=== PATIENT | female | born 1930 | race Caucasian/White ===

== ENCOUNTER 2016-02-16 17:15 | Inpatient (IN) | payer OTHER ==
[~2016-02-16] VITALS: Ht 165.1 cm; Wt 56.5 kg
[~2016-02-16 17:15] MED LIST: ASCORBIC ACID250 MG PO; Actonel PO; Ambien PO; BENICAR HCT 401 EAC1 PO; CALAN SR,COVER120 MG PO; COMPAZINE10 MG PO; COUMADIN2 MG PO; COUMADIN3 M1 PO; CRESTOR40 MG PO; Calan PO; IRON325 MG PO; K-DUR20 MEQ PO; LIPITOR40 MG PO; LIPITOR80 MG PO; LOPRESSOR25 MG PO; LOPRESSOR50 MG PO; Lopressor PO; METOPROLOL TART25 MG PO; PLAVIX75 MG PO; PROTONIX40 MG PO; WARFARIN SODIUM4 MG PO; XANAX0.25 MG PO; ZESTRIL,PRINIVI40 MG PO
[2016-02-16 17:55] LABS: HEMATOCRIT 26.2 % (36.0-46.0); MCH 32.2 PG (29.0-34.0); MCHC 32.1 G/DL (30.0-36.0); MCV 100.4 FL (83-99); MEAN PLAT.VOLUME 12.3 uM^3 (9.5-12.4); PLATELET COUNT 159 K/uL (156-360); RBC DIS.WIDTH-CV 23.1 % (11.8-14.6); RBC DIS.WIDTH-SD 78.5 % (39-53); RED BLOOD COUNT 2.61 M/uL (3.80-5.20); WHITE BLOOD COUNT 4.7 K/uL (4.1-10.2)
[2016-02-16 18:06] LABS: CHLORIDE 111 mEq/L (99-109); POTASSIUM 4.6 mEq/L (3.7-5.4); SODIUM 139 mEq/L (136-147)
[2016-02-16 18:08] LABS: GLUCOSE 95 mg/dL (70-99)
[2016-02-16 18:10] LABS: ANION GAP 9 MEQ/L (2-14); INTER. NORMALIZED RATIO 6.3; PROTHROMBIN TIME 67.7 (9.2-11.2)
[2016-02-16 18:12] LABS: GFR ESTIMATE (CALCULATED) 13 mL/min/
[2016-02-16 18:13] LABS: UREA NITROGEN (BUN) 42 mg/dL (9-23)
[2016-02-16] MEDS ORDERED: LIPITOR40 MG PO (18:37)
[2016-02-16] MEDS ORDERED: COUMADIN3 MG PO (18:38)
[2016-02-16] MEDS ORDERED: MIRTAZAPINE7.5 MG PO (18:38)
[2016-02-16] MEDS ORDERED: VERAPAMIL HCL120 MG PO (18:39)
[2016-02-16] MEDS ORDERED: TYLENOL REGULA325 MG PO (18:40)
[2016-02-16 21:31] LABS: TOTAL BILIRUBIN 1.9 mg/dL (0.0-1.0)
[2016-02-16 21:32] LABS: ALKALINE PHOSPHATASE 79 IU/L (3-129)
[2016-02-16 21:34] LABS: DIRECT BILIRUBIN 0.6 mg/dL (0.0-0.3)
[2016-02-16 21:55] VITALS: BP 140/60
[2016-02-16 22:10] VITALS: BP 142/65
[2016-02-16 22:47] VITALS: BP 162/70
[2016-02-17] VITALS (14 sets, daily range): BP systolic 121–192; BP diastolic 62–76
[2016-02-17 06:56] LABS: CHLORIDE 112 MEQ/L (99-109); GFR ESTIMATE (CALCULATED) 14 mL/min/; GLUCOSE 89 mg/dL (70-99); POTASSIUM 4.3 MEQ/L (3.7-5.4); SODIUM 141 MEQ/L (136-147); UREA NITROGEN (BUN) 41 mg/dL (9-23)
[2016-02-17 06:57] LABS: ALKALINE PHOSPHATASE 62 IU/L (3-129); ANION GAP 8 MEQ/L (2-14); MAGNESIUM 1.8 mg/dl (1.3-2.7); SAMPLE HEMOLYSIS CHECK 1; SAMPLE ICTERIC CHECK 0; SAMPLE LIPEMIA CHECK 0; TOTAL BILIRUBIN 2.7 MG/DL (0.0-1.0)
[2016-02-17 06:59] LABS: HEMATOCRIT 32.5 % (36.0-46.0)
[2016-02-17 07:49] LABS: ADD MIUA? YES; BILIRUBIN NEGATIVE; BLOOD LARGE; COLOR YELLOW ((YELLOW)); GLUCOSE (STRIP) NEGATIVE; KETONES NEGATIVE; LEUKOCYTES SMALL; NITRITE NEGATIVE; PH, URINE 5.5 (5-8); PROTEIN (STRIP) 30; SPECIFIC GRAVITY 1.007 (1.000-1.030); UROBILINOGEN 0.2 MG/DL (0.2-1.0)
[2016-02-17 07:52] LABS: BACTERIA NONE SEEN; CASTS NONE SEEN /LPF; CRYSTALS NONE SEEN; EPITHELIAL CELLS RARE; MUCUS NONE SEEN; PATHOLOGICAL CAST NONE SEEN; RED BLOOD CELLS 30-40 /HPF (0-5); SMALL ROUND CELL NONE SEEN; UCUL ADDED? NO; YEAST-LIKE CELL NONE SEEN
[2016-02-17 09:15] LABS: INTER. NORMALIZED RATIO 5.2; PROTHROMBIN TIME 55.9 (9.2-11.2)
[2016-02-17 18:05] LABS: HEMATOCRIT 30.5 % (36.0-46.0); MCV 93.8 FL (83-99)
[2016-02-17 18:46] LABS: UR CREATININE CONCENTRATION 32.9 MG/DL
[2016-02-18 04:30] VITALS: BP 132/67
[2016-02-18 06:13] LABS: ANION GAP 10 MEQ/L (2-14); CHLORIDE 110 MEQ/L (99-109); GFR ESTIMATE (CALCULATED) 15 mL/min/; GLUCOSE 87 mg/dL (70-99); SAMPLE HEMOLYSIS CHECK 1; SAMPLE ICTERIC CHECK 0; SAMPLE LIPEMIA CHECK 0; SODIUM 141 MEQ/L (136-147); UREA NITROGEN (BUN) 42 mg/dL (9-23); URIC ACID 5.4 mg/dL (3.1-9.2)
[2016-02-18 06:16] LABS: INTER. NORMALIZED RATIO 4.1
[2016-02-18 06:52] LABS: PROTHROMBIN TIME 43.9 (9.2-11.2)
[2016-02-18 07:11] LABS: EOSINOPHIL (%) 2.4 % (0-5); EOSINOPHIL COUNT 0.1 K/uL (0-0.3); HEMATOCRIT 30.9 % (36.0-46.0); IMMATURE GRANULOCYTE (%) 0.4 % (0.0-0.7); LYMPHOCYTE COUNT 0.5 K/uL (1.0-2.8); MCH 31.2 PG (29.0-34.0); MCV 94.5 FL (83-99); MONOCYTE (%) 12.6 % (3-12); MONOCYTE COUNT 0.7 K/uL (0-0.8); NEUTROPHIL (%) 74.7 % (45-76); NEUTROPHIL COUNT 4.1 K/uL (1.8-6.4); RBC DIS.WIDTH-CV 22.6 % (11.8-14.6); RBC DIS.WIDTH-SD 75.2 % (39-53); WHITE BLOOD COUNT 5.5 K/uL (4.1-10.2)
[2016-02-18 07:15] LABS: RED BLOOD COUNT 3.27 M/uL (3.80-5.20)
[2016-02-18 08:36] VITALS: BP 167/74
[2016-02-18 09:28] LABS: MEAN PLAT.VOLUME 13.4 uM^3 (9.5-12.4); PLAT.SUFFICIENCY ADEQUATE; PLATELET COUNT 166 K/uL (156-360); USER ID STC
[2016-02-18 12:35] VITALS: BP 156/74
[2016-02-18 16:32] VITALS: BP 190/95
[2016-02-18 20:00] VITALS: BP 150/86
[2016-02-19] VITALS: BP 168/87
[2016-02-19 04:00] VITALS: BP 141/61
[2016-02-19 06:46] LABS: ANION GAP 12 MEQ/L (2-14); CHLORIDE 110 MEQ/L (99-109); GFR ESTIMATE (CALCULATED) 15 mL/min/; GLUCOSE 105 mg/dL (70-99); MAGNESIUM 1.7 mg/dl (1.3-2.7); POTASSIUM 3.7 MEQ/L (3.7-5.4); SAMPLE HEMOLYSIS CHECK 1; SAMPLE ICTERIC CHECK 0; SAMPLE LIPEMIA CHECK 0; SODIUM 142 MEQ/L (136-147); UREA NITROGEN (BUN) 44 mg/dL (9-23)
[2016-02-19 06:52] LABS: PROTHROMBIN TIME 31.4 (9.2-11.2)
[2016-02-19 07:08] LABS: MCH 31.5 PG (29.0-34.0); MCHC 33.3 G/DL (30.0-36.0); MCV 94.4 FL (83-99); RBC DIS.WIDTH-CV 21.5 % (11.8-14.6); RBC DIS.WIDTH-SD 71.3 % (39-53); RED BLOOD COUNT 2.86 M/uL (3.80-5.20); WHITE BLOOD COUNT 5.2 K/uL (4.1-10.2)
[2016-02-19 08:12] VITALS: BP 162/7
[2016-02-19 08:21] LABS: MEAN PLAT.VOLUME 13.8 uM^3 (9.5-12.4); PLATELET COUNT 147 K/uL (156-360)
[2016-02-19 13:07] VITALS: BP 154/71
[2016-02-19 20:16] VITALS: BP 118/64
[2016-02-20] VITALS (9 sets, daily range): BP systolic 94–155; BP diastolic 51–70
[2016-02-20 06:41] LABS: INTER. NORMALIZED RATIO 2.8; PROTHROMBIN TIME 29.5 (9.2-11.2)
[2016-02-20 06:47] LABS: EOSINOPHIL (%) 0.4 % (0-5); HEMATOCRIT 31.6 % (36.0-46.0); IMMATURE GRANULOCYTE (%) 0.2 % (0.0-0.7); LYMPHOCYTE COUNT 0.8 K/uL (1.0-2.8); MCH 31.7 PG (29.0-34.0); MCHC 32.6 G/DL (30.0-36.0); MCV 97.2 FL (83-99); MONOCYTE (%) 8.2 % (3-12); MONOCYTE COUNT 0.8 K/uL (0-0.8); NEUTROPHIL (%) 82.9 % (45-76); NEUTROPHIL COUNT 8.1 K/uL (1.8-6.4); RBC DIS.WIDTH-SD 75.1 % (39-53); RED BLOOD COUNT 3.25 M/uL (3.80-5.20)
[2016-02-20 06:48] LABS: ANION GAP 10 MEQ/L (2-14); CHLORIDE 107 MEQ/L (99-109); GFR ESTIMATE (CALCULATED) 15 mL/min/; GLUCOSE 121 mg/dL (70-99); POTASSIUM 3.9 MEQ/L (3.7-5.4); SAMPLE HEMOLYSIS CHECK 0; SAMPLE ICTERIC CHECK 0; SAMPLE LIPEMIA CHECK 0; SODIUM 137 MEQ/L (136-147); UREA NITROGEN (BUN) 44 mg/dL (9-23)
[2016-02-20 06:59] LABS: MEAN PLAT.VOLUME 13.7 uM^3 (9.5-12.4); PLAT.SUFFICIENCY ADEQUATE; PLATELET COUNT 205 K/uL (156-360); USER ID TLW; WHITE BLOOD COUNT 9.8 K/uL (4.1-10.2)
[2016-02-20 08:12] LABS: ANTI-NUCLEAR AB SCRN/RFLX(ANA) REACTIVE (NONREACTIVE)
[2016-02-20 08:13] LABS: CENTROMERE ANTIBODY 7 U/mL (0-99); HISTONE ANTIBODY 27 U/mL (0-99); JO-1 ANTIBODY 13 U/mL (0-99); SCL-70 (SCLERODERMA) ANTIBODY 9 U/mL (0-99); SM (SMITH) ANTIBODY 9 U/mL (0-99); SS-A (SJOGREN'S) ANTIBODY 9 U/mL (0-99); SS-B (SJOGREN'S) ANTIBODY 9 U/mL (0-99)
[2016-02-20 15:38] LABS: C3 COMPLEMENT 125 MG/DL (58-170); C4 COMPLEMENT 26 MG/DL (10-40)
[2016-02-20 16:33] LABS: HBSG INDEX 0.23; HPCA INDEX 0.15
[2016-02-21 03:43] VITALS: BP 102/49
[2016-02-21 06:44] LABS: PROTHROMBIN TIME 31.7 (9.2-11.2)
[2016-02-21 06:55] LABS: ANION GAP 10 MEQ/L (2-14); CHLORIDE 108 MEQ/L (99-109); GFR ESTIMATE (CALCULATED) 16 mL/min/; POTASSIUM 3.5 MEQ/L (3.7-5.4); SAMPLE HEMOLYSIS CHECK 0; SAMPLE ICTERIC CHECK 0; SAMPLE LIPEMIA CHECK 0; SODIUM 138 MEQ/L (136-147); UREA NITROGEN (BUN) 46 mg/dL (9-23)
[2016-02-21 06:57] LABS: GLUCOSE 85 mg/dL (70-99)
[2016-02-21 07:19] LABS: EOSINOPHIL (%) 2.8 % (0-5); EOSINOPHIL COUNT 0.2 K/uL (0-0.3); HEMATOCRIT 24.5 % (36.0-46.0); IMMATURE GRANULOCYTE (%) 0.1 % (0.0-0.7); LYMPHOCYTE COUNT 0.4 K/uL (1.0-2.8); MCH 31.8 PG (29.0-34.0); MCHC 33.1 G/DL (30.0-36.0); MCV 96.1 FL (83-99); MONOCYTE (%) 11.2 % (3-12); MONOCYTE COUNT 0.8 K/uL (0-0.8); NEUTROPHIL (%) 79.7 % (45-76); NEUTROPHIL COUNT 5.4 K/uL (1.8-6.4); RBC DIS.WIDTH-CV 21.5 % (11.8-14.6); RBC DIS.WIDTH-SD 72.9 % (39-53)
[2016-02-21 07:21] LABS: RED BLOOD COUNT 2.55 M/uL (3.80-5.20); WHITE BLOOD COUNT 6.8 K/uL (4.1-10.2)
[2016-02-21 07:42] LABS: MEAN PLAT.VOLUME 13.8 uM^3 (9.5-12.4); PLAT.SUFFICIENCY ADEQUATE; PLATELET COUNT 148 K/uL (156-360)
[2016-02-21 07:44] LABS: ERTH.SED.RATE 39 MM/HR (0-30)
[2016-02-21 11:31] VITALS: BP 134/59
[2016-02-21 20:05] VITALS: BP 133/62
[2016-02-21 23:42] VITALS: BP 149/64
[2016-02-22 03:55] VITALS: BP 126/60
[2016-02-22 06:02] LABS: INTER. NORMALIZED RATIO 2.7; PROTHROMBIN TIME 28.8 (9.2-11.2)
[2016-02-22 06:10] LABS: ANION GAP 10 MEQ/L (2-14); CHLORIDE 106 MEQ/L (99-109); GFR ESTIMATE (CALCULATED) 17 mL/min/; GLUCOSE 101 mg/dL (70-99); POTASSIUM 3.4 MEQ/L (3.7-5.4); SAMPLE HEMOLYSIS CHECK 0; SAMPLE ICTERIC CHECK 0; SAMPLE LIPEMIA CHECK 0; SODIUM 137 MEQ/L (136-147); UREA NITROGEN (BUN) 49 mg/dL (9-23)
[2016-02-22 07:00] VITALS: BP 145/66
[2016-02-22 11:48] VITALS: BP 136/67
[2016-02-22 13:41] LABS: URIC ACID 5.5 mg/dL (3.1-9.2)
[2016-02-22 13:46] LABS: Neutrophil Cytoplasmic Aby Negative (Negative)
[2016-02-22 14:19] LABS: HEMATOCRIT 26.7 % (36.0-46.0); MCH 30.7 PG (29.0-34.0); MCHC 32.2 G/DL (30.0-36.0); MCV 95.4 FL (83-99); RBC DIS.WIDTH-CV 21.4 % (11.8-14.6); RBC DIS.WIDTH-SD 72.3 % (39-53); WHITE BLOOD COUNT 6.6 K/uL (4.1-10.2)
[2016-02-22 14:22] LABS: EOSINOPHIL (%) 1.7 % (0-5); EOSINOPHIL COUNT 0.1 K/uL (0-0.3); IMMATURE GRANULOCYTE (%) 0.2 % (0.0-0.7); LYMPHOCYTE COUNT 0.2 K/uL (1.0-2.8); MEAN PLAT.VOLUME 12.8 uM^3 (9.5-12.4); MONOCYTE (%) 8.5 % (3-12); MONOCYTE COUNT 0.6 K/uL (0-0.8); NEUTROPHIL (%) 85.8 % (45-76); NEUTROPHIL COUNT 5.7 K/uL (1.8-6.4)
[2016-02-22 14:24] LABS: PLATELET COUNT 200 K/uL (156-360)
[2016-02-22 15:31] VITALS: BP 146/68
[2016-02-22 20:15] VITALS: BP 149/65
[2016-02-23] VITALS (10 sets, daily range): BP systolic 103–137; BP diastolic 52–70
[2016-02-23 07:23] LABS: EOSINOPHIL (%) 3.2 % (0-5); EOSINOPHIL COUNT 0.2 K/uL (0-0.3); HEMATOCRIT 23.8 % (36.0-46.0); IMMATURE GRANULOCYTE (%) 0.4 % (0.0-0.7); IMMATURE GRANULOCYTE COUNT 0.2 K/uL; LYMPHOCYTE COUNT 0.4 K/uL (1.0-2.8); MCH 31.5 PG (29.0-34.0); MCHC 32.8 G/DL (30.0-36.0); MEAN PLAT.VOLUME 13.3 uM^3 (9.5-12.4); MONOCYTE (%) 12.2 % (3-12); MONOCYTE COUNT 0.7 K/uL (0-0.8); NEUTROPHIL (%) 76.6 % (45-76); NEUTROPHIL COUNT 4.3 K/uL (1.8-6.4); PLATELET COUNT 175 K/uL (156-360); RBC DIS.WIDTH-CV 21.1 % (11.8-14.6); RBC DIS.WIDTH-SD 68.4 % (39-53); RED BLOOD COUNT 2.48 M/uL (3.80-5.20); WHITE BLOOD COUNT 5.6 K/uL (4.1-10.2)
[2016-02-23 07:52] LABS: ALKALINE PHOSPHATASE 63 IU/L (3-129); ANION GAP 8 MEQ/L (2-14); CHLORIDE 113 MEQ/L (99-109); GFR ESTIMATE (CALCULATED) 19 mL/min/; GLUCOSE 88 mg/dL (70-99); MAGNESIUM 1.6 mg/dl (1.3-2.7); POTASSIUM 3.3 MEQ/L (3.7-5.4); SAMPLE HEMOLYSIS CHECK 0; SAMPLE ICTERIC CHECK 0; SAMPLE LIPEMIA CHECK 0; SODIUM 142 MEQ/L (136-147); UREA NITROGEN (BUN) 41 mg/dL (9-23)
[2016-02-23 07:55] LABS: INTER. NORMALIZED RATIO 2.9; PROTHROMBIN TIME 30.5 (9.2-11.2)
[2016-02-23 08:05] LABS: TOTAL BILIRUBIN 1.1 MG/DL (0.0-1.0)
[2016-02-23 08:58] LABS: HEMATOLOGY COMMENT 1 SMEAR COMPATIBLE; PLAT.SUFFICIENCY ADEQUATE; USER ID BLP
[2016-02-23 15:19] LABS: GLUCOSE (STRIP) 250; KETONES NEGATIVE
[2016-02-23 15:43] LABS: COLOR RED ((YELLOW)); LEUKOCYTES SMALL; NITRITE NEGATIVE; SPECIFIC GRAVITY 1.013 (1.000-1.030)
[2016-02-23 15:44] LABS: ADD MIUA? YES; BILIRUBIN SMALL; BLOOD LARGE; PH, URINE 6 (5-8); PROTEIN (STRIP) 100; UROBILINOGEN 0.2 MG/DL (0.2-1.0)
[2016-02-23 16:03] LABS: HEMATOCRIT 22.9 % (36.0-46.0)
[2016-02-23 16:08] LABS: EPITHELIAL CELLS RARE; RED BLOOD CELLS RARE /HPF (0-5); WHITE BLOOD CELLS 0-5 /HPF (0-5)
[2016-02-23 16:09] LABS: MUCUS RARE
[2016-02-23 16:10] LABS: BACTERIA 1+
[2016-02-23 16:11] LABS: AMORPHOUS URATES CRYSTALS 1+; CASTS NONE SEEN /LPF; CRYSTALS PRESENT
[2016-02-24 04:54] VITALS: BP 106/52
[2016-02-24 06:03] LABS: HEMATOCRIT 27.3 % (36.0-46.0); MCH 31.1 PG (29.0-34.0); MCV 94.5 FL (83-99); MEAN PLAT.VOLUME 12.5 uM^3 (9.5-12.4); PLATELET COUNT 188 K/uL (156-360); RBC DIS.WIDTH-CV 20.7 % (11.8-14.6); RBC DIS.WIDTH-SD 68.1 % (39-53); RED BLOOD COUNT 2.89 M/uL (3.80-5.20); WHITE BLOOD COUNT 6.7 K/uL (4.1-10.2)
[2016-02-24 06:18] LABS: EOSINOPHIL (%) 1.9 % (0-5); EOSINOPHIL COUNT 0.1 K/uL (0-0.3); IMMATURE GRANULOCYTE (%) 0.1 % (0.0-0.7); LYMPHOCYTE COUNT 0.7 K/uL (1.0-2.8); MONOCYTE (%) 4.3 % (3-12); MONOCYTE COUNT 0.3 K/uL (0-0.8); NEUTROPHIL (%) 83.9 % (45-76); NEUTROPHIL COUNT 5.6 K/uL (1.8-6.4)
[2016-02-24 06:23] LABS: INTER. NORMALIZED RATIO 3.2; PROTHROMBIN TIME 33.7 (9.2-11.2)
[2016-02-24 06:29] LABS: ANION GAP 8 MEQ/L (2-14); CHLORIDE 113 MEQ/L (99-109); GFR ESTIMATE (CALCULATED) 22 mL/min/; GLUCOSE 94 mg/dL (70-99); MAGNESIUM 1.7 mg/dl (1.3-2.7); POTASSIUM 3.9 MEQ/L (3.7-5.4); SAMPLE HEMOLYSIS CHECK 0; SAMPLE ICTERIC CHECK 0; SAMPLE LIPEMIA CHECK 0; SODIUM 140 MEQ/L (136-147); UREA NITROGEN (BUN) 37 mg/dL (9-23)
[2016-02-24 08:09] VITALS: BP 137/64
[2016-02-24 15:42] VITALS: BP 127/60
[2016-02-24 18:54] LABS: INTERNAL CONTROL VALID? YES
[2016-02-24 23:56] VITALS: BP 140/69
[2016-02-25 04:49] LABS: HEMATOCRIT 25.9 % (36.0-46.0); MCH 31.2 PG (29.0-34.0); MCHC 32.4 G/DL (30.0-36.0); MCV 96.3 FL (83-99); MEAN PLAT.VOLUME 12.5 uM^3 (9.5-12.4); PLATELET COUNT 195 K/uL (156-360); RBC DIS.WIDTH-CV 21.5 % (11.8-14.6); RBC DIS.WIDTH-SD 69.5 % (39-53); RED BLOOD COUNT 2.69 M/uL (3.80-5.20); WHITE BLOOD COUNT 7.2 K/uL (4.1-10.2)
[2016-02-25 04:52] LABS: EOSINOPHIL (%) 1.9 % (0-5); EOSINOPHIL COUNT 0.1 K/uL (0-0.3); IMMATURE GRANULOCYTE (%) 0.6 % (0.0-0.7); IMMATURE GRANULOCYTE COUNT 0.4 K/uL; LYMPHOCYTE COUNT 0.5 K/uL (1.0-2.8); MONOCYTE (%) 8.4 % (3-12); MONOCYTE COUNT 0.6 K/uL (0-0.8); NEUTROPHIL (%) 82.2 % (45-76)
[2016-02-25 04:55] LABS: PROTHROMBIN TIME 42.5 (9.2-11.2)
[2016-02-25 04:58] LABS: CHLORIDE 115 mEq/L (99-109); POTASSIUM 3.7 mEq/L (3.7-5.4); SODIUM 141 mEq/L (136-147)
[2016-02-25 05:00] LABS: GLUCOSE 85 mg/dL (70-99)
[2016-02-25 05:01] LABS: ANION GAP 9 MEQ/L (2-14)
[2016-02-25 05:04] LABS: GFR ESTIMATE (CALCULATED) 25 mL/min/; UREA NITROGEN (BUN) 32 mg/dL (9-23)
[2016-02-25 07:57] VITALS: BP 151/75
[2016-02-25 09:16] VITALS: BP 196/97
[2016-02-25 10:06] LABS: ANION GAP 7 MEQ/L (2-14); CHLORIDE 113 MEQ/L (99-109); MAGNESIUM 1.6 mg/dl (1.3-2.7); POTASSIUM 3.4 MEQ/L (3.7-5.4); SAMPLE HEMOLYSIS CHECK 1; SAMPLE ICTERIC CHECK 0; SAMPLE LIPEMIA CHECK 0; SODIUM 140 MEQ/L (136-147)
[2016-02-25 10:12] LABS: GFR ESTIMATE (CALCULATED) 25 mL/min/; GLUCOSE 97 mg/dL (70-99); UREA NITROGEN (BUN) 31 mg/dL (9-23)
[2016-02-25 10:15] VITALS: BP 165/76
[2016-02-25 11:25] LABS: TROP-I INTERPRETATION NEGATIVE; TROPONIN-I 0.08 ng/mL (0.0-0.30)
[2016-02-25 12:29] LABS: C DIFF TOXIN NEGATIVE (NEGATIVE)
[2016-02-25 12:41] LABS: PROBE CHECK PASS; SPECIMEN PROCESSING CONTROL PASS
[2016-02-25 16:15] VITALS: BP 126/60
[2016-02-25 23:43] VITALS: BP 133/60
[2016-02-26 04:05] VITALS: BP 134/78
[2016-02-26 05:42] LABS: INTER. NORMALIZED RATIO 3.9
[2016-02-26 06:03] LABS: ANION GAP 8 MEQ/L (2-14); CHLORIDE 112 MEQ/L (99-109); GFR ESTIMATE (CALCULATED) 27 mL/min/; GLUCOSE 89 mg/dL (70-99); POTASSIUM 3.7 MEQ/L (3.7-5.4); SAMPLE HEMOLYSIS CHECK 1; SAMPLE ICTERIC CHECK 0; SAMPLE LIPEMIA CHECK 0; SODIUM 141 MEQ/L (136-147); UREA NITROGEN (BUN) 32 mg/dL (9-23)
[2016-02-26 07:35] VITALS: BP 154/77
[2016-02-26 09:58] LABS: MAGNESIUM 2.3 mg/dl (1.3-2.7)
[2016-02-26 16:46] VITALS: BP 141/81
[2016-02-27 00:39] VITALS: BP 118/57
[2016-02-27 05:04] LABS: INTER. NORMALIZED RATIO 3.2
[2016-02-27 05:15] LABS: CHLORIDE 113 mEq/L (99-109); POTASSIUM 3.1 mEq/L (3.7-5.4); SODIUM 141 mEq/L (136-147)
[2016-02-27 05:16] LABS: MAGNESIUM 1.7 mg/dL (1.3-2.7)
[2016-02-27 05:18] LABS: GLUCOSE 90 mg/dL (70-99)
[2016-02-27 05:19] LABS: ANION GAP 10 MEQ/L (2-14)
[2016-02-27 05:21] LABS: GFR ESTIMATE (CALCULATED) 30 mL/min/
[2016-02-27 05:22] LABS: UREA NITROGEN (BUN) 31 mg/dL (9-23)
[2016-02-27 07:37] VITALS: BP 178/79
[2016-02-27] MEDS ORDERED: ALLOPURINOL100 MG PO (11:28)
[2016-02-27] MEDS ORDERED: PREDNISONE20 MG PO (11:28)
[2016-02-27] MEDS ORDERED: NEUTRA-PHOS,1 PACKET PO ×2 (11:30→11:39)
[2016-02-27] MEDS ORDERED: COUMADIN1 MG PO ×2 (12:02→12:04)
== END 2016-02-27 16:04 | disposition home health service (06) | DRG 813 ==
LOC: EME 17:15 → 5WEST 20:05 → EDOF 20:05 → 5WEST 22:43 → 3EAST 02-17 10:58 → 5WEST 02-17 10:58 → 3EAST 02-20 17:02
PROVIDERS: Emergency Medicine; Internal Medicine; Internal Medicine Nephrology; Physician Assistant Medical; Student in an Organized Health Care Education/Training Program
PROC: 30233P1 Transfusion of Nonautologous Frozen Red Cells into Peripheral Vein, Percutaneous Approach (ICD-10-PCS; principal; 2016-02-16)
DX: D68.32 Hemorrhagic disorder due to extrinsic circulating anticoagulants (principal); T45.515A Adverse effect of anticoagulants, initial encounter; I48.2 Chronic atrial fibrillation; I05.0 Rheumatic mitral stenosis; D50.0 Iron deficiency anemia secondary to blood loss (chronic); E86.0 Dehydration; N18.3 Chronic kidney disease, stage 3 (moderate); I50.32 Chronic diastolic (congestive) heart failure; N17.9 Acute kidney failure, unspecified; I27.2 Other secondary pulmonary hypertension; E78.5 Hyperlipidemia, unspecified; F03.90 Unspecified dementia, unspecified severity, without behavioral disturbance, psychotic disturbance, mood disturbance, and anxiety; M81.0 Age-related osteoporosis without current pathological fracture; Z95.1 Presence of aortocoronary bypass graft; Z95.2 Presence of prosthetic heart valve; I13.0 Hypertensive heart and chronic kidney disease with heart failure and stage 1 through stage 4 chronic kidney disease, or unspecified chronic kidney disease; R31.0 Gross hematuria; L03.116 Cellulitis of left lower limb; K21.9 Gastro-esophageal reflux disease without esophagitis; M10.9 Gout, unspecified; E87.6 Hypokalemia; L93.0 Discoid lupus erythematosus; D63.1 Anemia in chronic kidney disease
CPT/HCPCS: 71020; 73630; 76770; 80048; 80048 91; 80053; 80069; 80076; 81003; 82272; 82570; 83630; 83735; 83880; 83883 90; 84100; 84156; 84300; 84484; 84550; 85014; 85018; 85025; 85027; 85610; 85651; 86021 90; 86038; 86160; 86162 90; 86235; 86803; 86850; 86870; 86900; 86901; 86920; 87086; 87340; 87493; 89190; 93005; 94799; 99281; 99285; C9113; G0378; J0696; J2765; J3475; J7030; J7050; J7512; P9016; Q0164

== ENCOUNTER 2016-03-19 06:27 | Inpatient (IN) | payer OTHER ==
[~2016-03-19] VITALS: Ht 165.1 cm; Wt 50.7 kg
[~2016-03-19 06:27] MED LIST changes: +ALLOPURINOL100 MG PO; +COUMADIN1 MG PO; +COUMADIN3 MG PO; +MIRTAZAPINE7.5 MG PO; +NEUTRA-PHOS,1 PACKET PO; +PREDNISONE20 MG PO; +TYLENOL REGULA325 MG PO; +VERAPAMIL HCL120 MG PO
[2016-03-19 07:37] LABS: BASOPHIL COUNT 0.1 K/uL (0-0.1); EOSINOPHIL COUNT 0.1 K/uL (0-0.3); HEMATOCRIT 23.8 % (36.0-46.0); IMMATURE GRANULOCYTE (%) 0.7 % (0.0-0.7); IMMATURE GRANULOCYTE COUNT 0.6 K/uL; LYMPHOCYTE COUNT 0.6 K/uL (1.0-2.8); MCH 33.3 PG (29.0-34.0); MCHC 31.9 G/DL (30.0-36.0); MCV 104.4 FL (83-99); MONOCYTE (%) 8.8 % (3-12); MONOCYTE COUNT 0.7 K/uL (0-0.8); NEUTROPHIL (%) 80.9 % (45-76); NEUTROPHIL COUNT 6.6 K/uL (1.8-6.4); RBC DIS.WIDTH-SD 91.4 % (39-53); RED BLOOD COUNT 2.28 M/uL (3.80-5.20)
[2016-03-19 07:41] LABS: WHITE BLOOD COUNT 8.1 K/uL (4.1-10.2)
[2016-03-19 07:44] LABS: PTT 38.2 (25-32)
[2016-03-19 07:55] LABS: PROTHROMBIN TIME 77.6 (9.2-11.2)
[2016-03-19 07:56] LABS: INTER. NORMALIZED RATIO 7.2
[2016-03-19 08:04] LABS: ALKALINE PHOSPHATASE 85 IU/L (3-129); ANION GAP 10 MEQ/L (2-14); CHLORIDE 110 MEQ/L (99-109); DIRECT BILIRUBIN 0.7 mg/dL (0.0-0.3); GFR ESTIMATE (CALCULATED) 25 mL/min/; GLUCOSE 132 mg/dL (70-99); LIPASE 43 U/L (1.0-51.0); POTASSIUM 4.1 MEQ/L (3.7-5.4); SAMPLE HEMOLYSIS CHECK 2; SAMPLE ICTERIC CHECK 1; SAMPLE LIPEMIA CHECK 0; SODIUM 141 MEQ/L (136-147); TOTAL BILIRUBIN 3.9 MG/DL (0.0-1.0); UREA NITROGEN (BUN) 29 mg/dL (9-23)
[2016-03-19 08:07] LABS: TROP-I INTERPRETATION NEGATIVE; TROPONIN-I 0.16 ng/mL (0.0-0.30)
[2016-03-19 08:31] LABS: HEMATOLOGY COMMENT 1 SMEAR COMPATIBLE; USER ID CL
[2016-03-19 08:34] LABS: PLAT.SUFFICIENCY ADEQUATE; PLATELET COUNT 257 K/uL (156-360)
[2016-03-19 08:54] LABS: MEAN PLAT.VOLUME 10.7 uM^3 (9.5-12.4)
[2016-03-19 11:53] VITALS: BP 160/75
[2016-03-19 16:10] VITALS: BP 158/72
[2016-03-19] MEDS ORDERED: WARFARIN SODIUM1 MG PO (17:26)
[2016-03-19] MEDS ORDERED: CLONAZEPAM1 MG PO (17:28)
[2016-03-19 19:00] VITALS: BP 141/65
[2016-03-20] VITALS (15 sets, daily range): BP systolic 113–188; BP diastolic 54–81
[2016-03-20 09:01] LABS: HEMATOCRIT 27.5 % (36.0-46.0); MCH 31.9 PG (29.0-34.0); MCHC 32.7 G/DL (30.0-36.0); MEAN PLAT.VOLUME 11.7 uM^3 (9.5-12.4); PLATELET COUNT 204 K/uL (156-360); RBC DIS.WIDTH-CV 24.1 % (11.8-14.6); RBC DIS.WIDTH-SD 75.2 % (39-53); WHITE BLOOD COUNT 6.3 K/uL (4.1-10.2)
[2016-03-20 09:03] LABS: MCV 97.5 FL (83-99); RED BLOOD COUNT 2.82 M/uL (3.80-5.20)
[2016-03-20 10:08] LABS: ALKALINE PHOSPHATASE 75 IU/L (3-129); ANION GAP 12 MEQ/L (2-14); CHLORIDE 110 MEQ/L (99-109); GFR ESTIMATE (CALCULATED) 22 mL/min/; GLUCOSE 107 mg/dL (70-99); SAMPLE HEMOLYSIS CHECK 1; SAMPLE ICTERIC CHECK 1; SAMPLE LIPEMIA CHECK 0; SODIUM 142 MEQ/L (136-147); TOTAL BILIRUBIN 3.5 MG/DL (0.0-1.0); UREA NITROGEN (BUN) 25 mg/dL (9-23)
[2016-03-20 10:09] LABS: POTASSIUM 3.1 MEQ/L (3.7-5.4)
[2016-03-20 10:28] LABS: INTER. NORMALIZED RATIO 5.4; PROTHROMBIN TIME 57.8 (9.2-11.2)
[2016-03-21] VITALS (7 sets, daily range): BP systolic 99–163; BP diastolic 49–77
[2016-03-21 06:59] LABS: MCH 31.7 PG (29.0-34.0); MCHC 32.9 G/DL (30.0-36.0); MCV 96.6 FL (83-99); MEAN PLAT.VOLUME 11.7 uM^3 (9.5-12.4); PLATELET COUNT 217 K/uL (156-360); RBC DIS.WIDTH-CV 25.7 % (11.8-14.6); RBC DIS.WIDTH-SD 79.1 % (39-53); WHITE BLOOD COUNT 6.1 K/uL (4.1-10.2)
[2016-03-21 07:18] LABS: PROTHROMBIN TIME 76.1 (9.2-11.2)
[2016-03-21 07:23] LABS: ALKALINE PHOSPHATASE 73 IU/L (3-129); ANION GAP 11 MEQ/L (2-14); CHLORIDE 108 MEQ/L (99-109); GFR ESTIMATE (CALCULATED) 24 mL/min/; GLUCOSE 105 mg/dL (70-99); POTASSIUM 3.1 MEQ/L (3.7-5.4); SAMPLE HEMOLYSIS CHECK 1; SAMPLE ICTERIC CHECK 1; SAMPLE LIPEMIA CHECK 0; SODIUM 142 MEQ/L (136-147); TOTAL BILIRUBIN 3.6 MG/DL (0.0-1.0); UREA NITROGEN (BUN) 24 mg/dL (9-23)
[2016-03-22 03:14] VITALS: BP 127/58
[2016-03-22 06:42] LABS: HEMATOCRIT 26.6 % (36.0-46.0); MCH 32.3 PG (29.0-34.0); MCHC 32.3 G/DL (30.0-36.0); MEAN PLAT.VOLUME 11.9 uM^3 (9.5-12.4); NRBC (%) 1.3 /100 WBC (0-0); PLATELET COUNT 187 K/uL (156-360); RBC DIS.WIDTH-CV 26.3 % (11.8-14.6); RBC DIS.WIDTH-SD 84.6 % (39-53); RED BLOOD COUNT 2.66 M/uL (3.80-5.20); WHITE BLOOD COUNT 5.9 K/uL (4.1-10.2)
[2016-03-22 06:54] LABS: EOSINOPHIL (%) 3.9 % (0-5); EOSINOPHIL COUNT 0.2 K/uL (0-0.3); IMMATURE GRANULOCYTE (%) 0.5 % (0.0-0.7); LYMPHOCYTE COUNT 0.6 K/uL (1.0-2.8); MONOCYTE (%) 8.7 % (3-12); MONOCYTE COUNT 0.5 K/uL (0-0.8); NEUTROPHIL (%) 76.5 % (45-76); NEUTROPHIL COUNT 4.5 K/uL (1.8-6.4)
[2016-03-22 07:09] LABS: ALKALINE PHOSPHATASE 66 IU/L (3-129); ANION GAP 11 MEQ/L (2-14); CHLORIDE 108 MEQ/L (99-109); GFR ESTIMATE (CALCULATED) 21 mL/min/; GLUCOSE 101 mg/dL (70-99); POTASSIUM 3.2 MEQ/L (3.7-5.4); SAMPLE HEMOLYSIS CHECK 0; SAMPLE ICTERIC CHECK 1; SAMPLE LIPEMIA CHECK 0; SODIUM 141 MEQ/L (136-147); TOTAL BILIRUBIN 3.1 MG/DL (0.0-1.0); UREA NITROGEN (BUN) 25 mg/dL (9-23)
[2016-03-22 08:00] VITALS: BP 142/98
[2016-03-22 10:14] LABS: POC NON-PRINT COM 1 ND
[2016-03-22 11:30] VITALS: BP 148/69
[2016-03-22 16:24] VITALS: BP 133/60
[2016-03-22 19:27] VITALS: BP 121/56
[2016-03-23] VITALS (9 sets, daily range): BP systolic 130–160; BP diastolic 60–95
[2016-03-23 10:25] LABS: EOSINOPHIL (%) 0.4 % (0-5); HEMATOCRIT 31.2 % (36.0-46.0); IMMATURE GRANULOCYTE (%) 0.9 % (0.0-0.7); IMMATURE GRANULOCYTE COUNT 0.1 K/uL; LYMPHOCYTE COUNT 0.3 K/uL (1.0-2.8); MCH 31.8 PG (29.0-34.0); MCHC 32.1 G/DL (30.0-36.0); MCV 99.4 FL (83-99); MONOCYTE (%) 6.5 % (3-12); MONOCYTE COUNT 0.6 K/uL (0-0.8); NEUTROPHIL (%) 88.1 % (45-76); NEUTROPHIL COUNT 7.5 K/uL (1.8-6.4); PLATELET COUNT 195 K/uL (156-360); RBC DIS.WIDTH-CV 25.7 % (11.8-14.6); RBC DIS.WIDTH-SD 87.8 % (39-53); RED BLOOD COUNT 3.14 M/uL (3.80-5.20); WHITE BLOOD COUNT 8.5 K/uL (4.1-10.2)
[2016-03-23 10:52] LABS: ALKALINE PHOSPHATASE 77 IU/L (3-129); ANION GAP 12 MEQ/L (2-14); CHLORIDE 110 MEQ/L (99-109); GFR ESTIMATE (CALCULATED) 24 mL/min/; GLUCOSE 148 mg/dL (70-99); POTASSIUM 3.7 MEQ/L (3.7-5.4); SAMPLE HEMOLYSIS CHECK 2; SAMPLE ICTERIC CHECK 1; SAMPLE LIPEMIA CHECK 0; SODIUM 141 MEQ/L (136-147); UREA NITROGEN (BUN) 27 mg/dL (9-23)
[2016-03-23 11:47] LABS: INTER. NORMALIZED RATIO 3.2; PROTHROMBIN TIME 33.5 (9.2-11.2)
[2016-03-24] VITALS (10 sets, daily range): BP systolic 138–200; BP diastolic 74–90
[2016-03-24 07:24] LABS: DELETE MACHINE DIFF? YES; HEMATOCRIT 24.9 % (36.0-46.0); MCH 31.7 PG (29.0-34.0); MCHC 32.1 G/DL (30.0-36.0); MCV 98.8 FL (83-99); MEAN PLAT.VOLUME 12.4 uM^3 (9.5-12.4); PLATELET COUNT 175 K/uL (156-360); RBC DIS.WIDTH-CV 26.2 % (11.8-14.6); RBC DIS.WIDTH-SD 91.1 % (39-53); RED BLOOD COUNT 2.52 M/uL (3.80-5.20); WHITE BLOOD COUNT 7.6 K/uL (4.1-10.2)
[2016-03-24 07:29] LABS: ALKALINE PHOSPHATASE 58 IU/L (3-129); ANION GAP 11 MEQ/L (2-14); CHLORIDE 114 MEQ/L (99-109); GFR ESTIMATE (CALCULATED) 22 mL/min/; GLUCOSE 125 mg/dL (70-99); SAMPLE HEMOLYSIS CHECK 1; SAMPLE ICTERIC CHECK 0; SAMPLE LIPEMIA CHECK 0; SODIUM 145 MEQ/L (136-147); UREA NITROGEN (BUN) 31 mg/dL (9-23)
[2016-03-24 07:30] LABS: POTASSIUM 3.7 MEQ/L (3.7-5.4)
[2016-03-24 08:11] LABS: ABS NEUTROPHIL COUNT 5.98; ACANTHOCYTES 2+; ANISOCYTOSIS 3+; MACROCYTES 2+; PLAT.SUFFICIENCY ADEQUATE; SCHISTOCYTES OCC; SPHEROCYTES OCC
[2016-03-24 12:14] LABS: CK-MB 4.6 ng/mL (0.0-4.9); CREATINE KINASE 158 IU/L (1-294); TOTAL CK 158 IU/L (1-294)
[2016-03-24 12:15] LABS: TROP-I INTERPRETATION NEGATIVE; TROPONIN-I 0.15 ng/mL (0.0-0.30)
[2016-03-25] VITALS: BP 155/85
[2016-03-25 04:00] VITALS: BP 159/70
[2016-03-25 07:08] VITALS: BP 180/78
[2016-03-25 07:10] LABS: ABSOLUTE RETICULOCYTE CT. 0.17 M/uL (0.02-0.08); EOSINOPHIL (%) 0.3 % (0-5); IMMATURE GRANULOCYTE COUNT 0.1 K/uL; LYMPHOCYTE COUNT 0.3 K/uL (1.0-2.8); MCH 31.4 PG (29.0-34.0); MCV 95.1 FL (83-99); MONOCYTE COUNT 1.1 K/uL (0-0.8); NEUTROPHIL (%) 83.4 % (45-76); NEUTROPHIL COUNT 7.6 K/uL (1.8-6.4); NRBC (%) 1.5 /100 WBC (0-0); RBC DIS.WIDTH-CV 26.3 % (11.8-14.6); RBC DIS.WIDTH-SD 86.4 % (39-53); WHITE BLOOD COUNT 9.1 K/uL (4.1-10.2)
[2016-03-25 07:14] LABS: RED BLOOD COUNT 3.47 M/uL (3.80-5.20)
[2016-03-25 07:26] LABS: MEAN PLAT.VOLUME 12.3 uM^3 (9.5-12.4); PLAT.SUFFICIENCY ADEQUATE; PLATELET COUNT 214 K/uL (156-360)
[2016-03-25 10:19] LABS: INTER. NORMALIZED RATIO 2.1
[2016-03-25 10:27] LABS: ALKALINE PHOSPHATASE 75 IU/L (3-129); ANION GAP 9 MEQ/L (2-14); CHLORIDE 115 MEQ/L (99-109); GFR ESTIMATE (CALCULATED) 21 mL/min/; GLUCOSE 154 mg/dL (70-99); POTASSIUM 3.7 MEQ/L (3.7-5.4); SAMPLE HEMOLYSIS CHECK 3; SAMPLE ICTERIC CHECK 1; SAMPLE LIPEMIA CHECK 0; SODIUM 145 MEQ/L (136-147); UREA NITROGEN (BUN) 35 mg/dL (9-23)
[2016-03-25 10:30] LABS: PROTHROMBIN TIME 21.4 (9.2-11.2)
[2016-03-25 11:17] VITALS: BP 133/61
[2016-03-25 16:13] VITALS: BP 144/70
[2016-03-25 19:16] VITALS: BP 162/73
[2016-03-26] VITALS: BP 132/58
[2016-03-26 04:38] VITALS: BP 149/83
[2016-03-26 07:20] VITALS: BP 187/81
[2016-03-26 11:00] VITALS: BP 126/62
[2016-03-26 15:30] VITALS: BP 115/54
[2016-03-26 19:15] VITALS: BP 140/88
[2016-03-27 00:20] VITALS: BP 105/62; BP 154/67
[2016-03-27 04:00] VITALS: BP 149/70
[2016-03-27 05:12] LABS: BASE EXCESS -6.8 mEq/L (-3 to +3); BICARBONATE 18.3 mEq/L (22-26); CARBOXY HGB 3.1 % (0-5); METHEMOGLOBIN 2.1 % (0-1.5); PCO2 34 mm Hg (35-45); PO2 88 mm Hg (80-100); pH 7.34 (7.35-7.45)
[2016-03-27 05:13] LABS: COMMENTS - BLOOD GASES C+; DEVICE VENTURI MASK; FI02 50 %; O2 FLOW 12 L/MIN; SITE RR; TOTAL RESP RATE 16 resp/min
[2016-03-27 05:58] LABS: HEMATOCRIT 28.5 % (36.0-46.0); MCH 30.8 PG (29.0-34.0); MCHC 31.2 G/DL (30.0-36.0); MCV 98.6 FL (83-99); PLATELET COUNT 213 K/uL (156-360); RBC DIS.WIDTH-SD 91.9 % (39-53); RED BLOOD COUNT 2.89 M/uL (3.80-5.20); WHITE BLOOD COUNT 9.5 K/uL (4.1-10.2)
[2016-03-27 06:11] LABS: INTER. NORMALIZED RATIO 1.7; PROTHROMBIN TIME 17.7 (9.2-11.2)
[2016-03-27 06:20] LABS: ALKALINE PHOSPHATASE 77 IU/L (3-129); ANION GAP 11 MEQ/L (2-14); CHLORIDE 115 MEQ/L (99-109); POTASSIUM 4.2 MEQ/L (3.7-5.4); SAMPLE HEMOLYSIS CHECK 0; SAMPLE ICTERIC CHECK 1; SAMPLE LIPEMIA CHECK 0; SODIUM 145 MEQ/L (136-147); UREA NITROGEN (BUN) 44 mg/dL (9-23)
[2016-03-27 06:22] LABS: GFR ESTIMATE (CALCULATED) 16 mL/min/; GLUCOSE 99 mg/dL (70-99); TOTAL BILIRUBIN 2.7 MG/DL (0.0-1.0)
[2016-03-27 06:36] LABS: ANISOCYTOSIS 3+; BURR CELLS 3+; HYPOCHROMASIA 2+; MICROCYTOSIS 2+; PLAT.SUFFICIENCY ADEQUATE; POLYCHROMASIA 1+; SCHISTOCYTES OCC; SPHEROCYTES 1+; USER ID SLU
[2016-03-27 06:37] LABS: ABS NEUTROPHIL COUNT 8.46; EOSINOPHIL (%) 2.3 % (0-5); EOSINOPHIL COUNT 0.2 K/uL (0-0.3); IMMATURE GRANULOCYTE (%) 0.9 % (0.0-0.7); IMMATURE GRANULOCYTE COUNT 0.1 K/uL; LYMPHOCYTE COUNT 0.4 K/uL (1.0-2.8); MONOCYTE (%) 8.6 % (3-12); MONOCYTE COUNT 0.8 K/uL (0-0.8); NEUTROPHIL (%) 83.5 % (45-76); NEUTROPHIL COUNT 7.9 K/uL (1.8-6.4); NRBC (%) 5.5 /100 WBC (0-0)
[2016-03-27 08:00] VITALS: BP 137/72
[2016-03-27 11:48] VITALS: BP 105/57
[2016-03-27 12:15] LABS: BASE EXCESS -7.2 mEq/L (-3 to +3); BICARBONATE 17.8 mEq/L (22-26); CARBOXY HGB 3.3 % (0-5); COMMENTS - BLOOD GASES A+C+; DEVICE VENTI MASK; FI02 50 %; METHEMOGLOBIN 2.1 % (0-1.5); O2 FLOW 12 L/MIN; PCO2 33 mm Hg (35-45); PO2 79 mm Hg (80-100); SITE LR; TOTAL RESP RATE 18 resp/min; pH 7.34 (7.35-7.45)
[2016-03-27 15:25] VITALS: BP 127/58
[2016-03-27 20:00] VITALS: BP 154/78
[2016-03-28] VITALS (7 sets, daily range): BP systolic 127–165; BP diastolic 61–84
[2016-03-28 06:16] LABS: MEAN PLAT.VOLUME 12.5 uM^3 (9.5-12.4); PLATELET COUNT 212 K/uL (156-360)
[2016-03-28 06:47] LABS: ANION GAP 12 MEQ/L (2-14); CHLORIDE 116 MEQ/L (99-109); GFR ESTIMATE (CALCULATED) 16 mL/min/; GLUCOSE 91 mg/dL (70-99); SAMPLE HEMOLYSIS CHECK 1; SAMPLE ICTERIC CHECK 0; SAMPLE LIPEMIA CHECK 0; SODIUM 144 MEQ/L (136-147); UREA NITROGEN (BUN) 47 mg/dL (9-23)
[2016-03-28 07:02] LABS: POTASSIUM ND MEQ/L (3.7-5.4)
[2016-03-28 07:10] LABS: EOSINOPHIL (%) 2.3 % (0-5); EOSINOPHIL COUNT 0.2 K/uL (0-0.3); HEMATOCRIT 29.5 % (36.0-46.0); HEMATOLOGY COMMENT 1 SMEAR COMPATIBLE; IMMATURE GRANULOCYTE (%) 1.2 % (0.0-0.7); IMMATURE GRANULOCYTE COUNT 0.1 K/uL; LYMPHOCYTE COUNT 0.7 K/uL (1.0-2.8); MCH 31.6 PG (29.0-34.0); MCHC 31.2 G/DL (30.0-36.0); MCV 101.4 FL (83-99); MONOCYTE (%) 10.9 % (3-12); MONOCYTE COUNT 1.1 K/uL (0-0.8); NEUTROPHIL (%) 78.1 % (45-76); NEUTROPHIL COUNT 7.7 K/uL (1.8-6.4); RBC DIS.WIDTH-CV 29.4 % (11.8-14.6); RBC DIS.WIDTH-SD 95.2 % (39-53); RED BLOOD COUNT 2.91 M/uL (3.80-5.20); USER ID CCL; WHITE BLOOD COUNT 9.8 K/uL (4.1-10.2)
[2016-03-28 08:40] LABS: POTASSIUM 5.1 MEQ/L (3.7-5.4)
[2016-03-29 03:21] VITALS: BP 150/70
[2016-03-29 07:00] VITALS: BP 134/59
[2016-03-29 07:04] LABS: INTER. NORMALIZED RATIO 1.5; PROTHROMBIN TIME 15.7 (9.2-11.2)
[2016-03-29 07:06] LABS: ALKALINE PHOSPHATASE 80 IU/L (3-129); ANION GAP 10 MEQ/L (2-14); CHLORIDE 113 MEQ/L (99-109); GFR ESTIMATE (CALCULATED) 14 mL/min/; GLUCOSE 112 mg/dL (70-99); POTASSIUM 5.8 MEQ/L (3.7-5.4); SAMPLE HEMOLYSIS CHECK 0; SAMPLE ICTERIC CHECK 0; SAMPLE LIPEMIA CHECK 0; SODIUM 142 MEQ/L (136-147); UREA NITROGEN (BUN) 51 mg/dL (9-23)
[2016-03-29 07:09] LABS: TOTAL BILIRUBIN 1.9 MG/DL (0.0-1.0)
[2016-03-29 08:42] LABS: HEMATOCRIT 36.6 % (36.0-46.0); MCH 28.8 PG (29.0-34.0); MCHC 28.7 G/DL (30.0-36.0); MCV 100.5 FL (83-99); RBC DIS.WIDTH-CV 29.3 % (11.8-14.6); RBC DIS.WIDTH-SD 99.5 % (39-53); WHITE BLOOD COUNT 8.5 K/uL (4.1-10.2)
[2016-03-29 08:44] LABS: RED BLOOD COUNT 3.64 M/uL (3.80-5.20)
[2016-03-29 10:50] VITALS: BP 133/61
[2016-03-29 11:06] LABS: BASE EXCESS -10.1 mEq/L (-3 to +3); BICARBONATE 17.6 mEq/L (22-26); CARBOXY HGB 3.3 % (0-5); METHEMOGLOBIN 1.6 % (0-1.5)
[2016-03-29 11:07] LABS: COMMENTS - BLOOD GASES +C; DEVICE NRBM; FI02 100 %; O2 FLOW 15 L/MIN; PCO2 46 mm Hg (35-45); PO2 111 mm Hg (80-100); SITE LR +A; TOTAL RESP RATE 20 resp/min; pH 7.19 (7.35-7.45)
[2016-03-29 13:10] LABS: ADD MIUA? YES; BILIRUBIN NEGATIVE; BLOOD LARGE; COLOR YELLOW ((YELLOW)); GLUCOSE (STRIP) 50; KETONES NEGATIVE; LEUKOCYTES SMALL; NITRITE NEGATIVE; PROTEIN (STRIP) NEGATIVE; SPECIFIC GRAVITY 1.006 (1.000-1.030); UROBILINOGEN 0.2 MG/DL (0.2-1.0)
[2016-03-29 14:19] LABS: ANION GAP 9 MEQ/L (2-14); CHLORIDE 114 MEQ/L (99-109); POTASSIUM 4.9 MEQ/L (3.7-5.4); SAMPLE HEMOLYSIS CHECK 0; SAMPLE ICTERIC CHECK 0; SAMPLE LIPEMIA CHECK 0; SODIUM 142 MEQ/L (136-147)
[2016-03-29 14:24] LABS: GFR ESTIMATE (CALCULATED) 14 mL/min/; UREA NITROGEN (BUN) 52 mg/dL (9-23)
[2016-03-29 14:35] LABS: GLUCOSE 76 mg/dL (70-99)
[2016-03-29 14:44] LABS: BACTERIA NONE SEEN /HPF; EPITHELIAL CELLS RARE /HPF; MUCUS NONE SEEN /LPF; RED BLOOD CELLS 0-5 /HPF (0-5); WHITE BLOOD CELLS 0-5 /HPF (0-5)
[2016-03-29 14:45] LABS: AMORPHOUS URATES CRYSTALS 4+; CASTS NONE SEEN /LPF; CRYSTALS PRESENT
[2016-04-01 06:05] VITALS: BP 00/00
== END 2016-04-02 14:53 | DRG 291 ==
LOC: EME → EDBD 06:27 → 4EAST 09:47 → EDOF 09:47 → 4EAST 11:31 → 5EAST 03-30 09:12
PROVIDERS: Emergency Medicine; Internal Medicine; Internal Medicine Nephrology
PROC: 30233N1 Transfusion of Nonautologous Red Blood Cells into Peripheral Vein, Percutaneous Approach (ICD-10-PCS; principal; 2016-03-20)
DX: I50.32 Chronic diastolic (congestive) heart failure (principal); J18.9 Pneumonia, unspecified organism; N17.9 Acute kidney failure, unspecified; D62 Acute posthemorrhagic anemia; D68.32 Hemorrhagic disorder due to extrinsic circulating anticoagulants; R17 Unspecified jaundice; I13.0 Hypertensive heart and chronic kidney disease with heart failure and stage 1 through stage 4 chronic kidney disease, or unspecified chronic kidney disease; K92.2 Gastrointestinal hemorrhage, unspecified; I48.2 Chronic atrial fibrillation; I27.2 Other secondary pulmonary hypertension; N18.3 Chronic kidney disease, stage 3 (moderate); E87.5 Hyperkalemia; N30.90 Cystitis, unspecified without hematuria; I25.10 Atherosclerotic heart disease of native coronary artery without angina pectoris; I12.9 Hypertensive chronic kidney disease with stage 1 through stage 4 chronic kidney disease, or unspecified chronic kidney disease; Z51.5 Encounter for palliative care; E78.5 Hyperlipidemia, unspecified; M81.0 Age-related osteoporosis without current pathological fracture; F41.9 Anxiety disorder, unspecified; F03.90 Unspecified dementia, unspecified severity, without behavioral disturbance, psychotic disturbance, mood disturbance, and anxiety; Z95.1 Presence of aortocoronary bypass graft; Z87.440 Personal history of urinary (tract) infections; Z79.01 Long term (current) use of anticoagulants; Z95.2 Presence of prosthetic heart valve; Z90.49 Acquired absence of other specified parts of digestive tract
CPT/HCPCS: 36600; 71010; 71020; 74150; 76770; 80048; 80048 91; 80053; 80076; 80202; 81003; 82272; 82550; 82553; 82803; 83690; 83880; 84484; 84999; 85025; 85027; 85045; 85610; 85730; 86850; 86860; 86870; 86880; 86900; 86901; 86905; 86920; 87040; 87086; 88108; 93005; 93306; 94010; 94640; 94640 76; 94667; 94668; 94799; 99202; 99281; 99285; C9113; J0360; J0456; J0610; J0696; J1200; J1815; J1940; J2060; J2270; J2405; J2543; J3370; J7042; J7050; P9016; Q0164